=== PATIENT | female | born 1980 ===

== ENCOUNTER 2017-03-14 00:28 | Emergency (ER) | payer OTHER ==
[2017-03-14 00:46] VITALS: RESP 18
[2017-03-14 00:59] LABS: RBC URINE 10 /hpf (0-3); URINE BACTERIA RARE (<OCC); URINE BILIRUBIN NEGATIVE (NEGATIVE); URINE BLOOD 1+ (NEGATIVE); URINE COLOR Amber (YELLOW); URINE GLUCOSE (UA) NORMAL (Normal); URINE KETONE NEGATIVE (NEGATIVE); URINE LEUKOCYTE ESTERASE NEG Leu/uL (Negative); URINE PROTEIN NEGATIVE (NEGATIVE); WBC URINE 16 /hpf (0-5)
--- NOTE | 2017-03-14 02:04 | C.PDOC ---
History Of Present Illness 37 y/o female presents to ED with c/o dysuria, urinary frequency and left lower back pain x 4 days. Pt took OTC Azo with no relief. Pt denies fever, vomiting, abd pain, or vaginal discharge/ bleeding. Pt has past h/o of same in last january Time Seen by Provider: 03/14/17 01:37 Chief Complaint (Nursing): Female Genitourinary History Per: Patient History/Exam Limitations: no limitations Current Symptoms Are (Timing): Still Present Severity: Moderate Pain Scale Rating Of: 8 Quality Of Discomfort: Aching Associated Symptoms: Back Pain (lt), Urinary Symptoms (frequency and dysuria). denies: Fever, Nausea, Vomiting Recent travel outside of the [place]: No Past Medical History Vital Signs: Last Vital Signs Temp 97.9 F 03/14/17 02:15 Pulse 69 03/14/17 02:15 Resp 18 03/14/17 02:15 BP 104/67 03/14/17 02:15 Pulse Ox 98 03/14/17 02:15 - Medical History PMH: Hyperlipidemia Family History: States: Unknown Family Hx - Social History Hx Alcohol Use: No Hx Substance Use: No Review Of Systems Constitutional: Negative for: Fever Gastrointestinal: Negative for: Nausea, Vomiting, Abdominal Pain Genitourinary: Positive for: Dysuria, Frequency. Negative for: Hematuria, Vaginal Discharge, Vaginal Bleeding, Pelvic Pain Musculoskeletal: Positive for: Back Pain Physical Exam - Physical Exam Appears: Well, Non-toxic, No Acute Distress (painful ) Eye(s): bilateral: Normal Inspection, PERRL Neck: Normal, Supple Gastrointestinal/Abdominal: Soft, No Tenderness, No Distention, No Guarding, No Rebound Back: Normal Inspection, No CVA Tenderness Extremity: Normal ROM Extremity: Bilateral: Atraumatic Neurological/Psych: Oriented x3 ED Course And Treatment O2 Sat by Pulse Oximetry: 100 Pulse Ox Interpretation: Normal Progress Note: Pt appears well, sitting on stretcher in NAD. UA consistent with UTI, pt is afebrile, no vomiting, appears well with no comorbid fx, will treat outpatiently with PO macrobid and motrin. First dose initiated in ED and pt tolerated PO fluids. Plan of care d/w pt who does agree and will follow up with PMD. Return precautions d/w pt who expressed undestanding of these instructions Disposition Counseled Patient/Family Regarding: Diagnosis, Need For Followup, Rx Given - Disposition Referrals: Renee Menon MD [Staff Provider] - Disposition: HOME/ ROUTINE Disposition Time: 02:01 Condition: STABLE Additional Instructions: Please follow up with PMD or in clinic Take meds as directed Increase PO fluids Return to ER if worse Prescriptions: Ibuprofen [Motrin] 600 mg PO Q6H #20 tab Nitrofurantoin Macrocrystals [Macrobid] 1 cap PO BID #10 cap Instructions: Urinary Tract Infection in Women (ED) Forms: [facility] (Thai) - Clinical Impression Clinical Impression: UTI (urinary tract infection)
[2017-03-14 02:18] VITALS: BP 104/67; PULSE 69; TEMP 97.9
[2017-03-14 06:20] VITALS: O2SAT 100
== END 2017-03-14 02:17 | disposition home or self-care (01) ==
LOC: C.ER 00:28
DX: N39.0 Urinary tract infection, site not specified (principal)